=== PATIENT | female | born 1985 | race Caucasian/White ===

== ENCOUNTER 2018-06-23 11:05 | Emergency (ER) | payer MEDICAID, SELFPAY ==
--- NOTE | 2018-06-23 11:09 | NUR.NOTE ---
pt is 4-5 weeks and has noticed spotting g5,g5,
[2018-06-23 11:12] VITALS: BP 140/82; PULSE 105; RESP 25; TEMP 37.1; O2SAT 94
--- NOTE | 2018-06-23 11:28 | W.ED.GENAD ---
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 Clinical Impression: Vaginal bleeding affecting early Primary Care Provider: None,None ED Provider: Yonathan Mccord Home Meds and New Rx's Prescriptions: No Action ergocalciferol (vitamin D2) 400 unit tablet 400 unit PO DAILY RF: 0 multivitamin [Daily Multi-Vitamin] tablet 1 tab PO DAILY RF: 0 ferrous sulfate [Feosol] 325 mg (65 mg iron) tablet 325 mg PO DAILY RF: 0 levothyroxine [Synthroid] 50 mcg tablet 50 mcg PO DAILY Qty: 30 RF: 2 penicillin V potassium 500 mg tablet 500 mg PO TID 10 Days Qty: 30 RF: 0 Discharge Instructions Instructions: First Trimester Vaginal Bleed (ED) Additional Instructions: You need additional diagnostic testing. Please have repeat blood drawn on Sunday06/25/2018. Follow-up with OB on Sunday after blood draw or Sunday. No sexual activity until cleared. Return to the ER for any worsening or new concerning symptoms. Referrals: [facility] [Provider Group] Discharge Data Discharge Date/Time-TO BE ENTERED AT DEPARTURE: 06/23/18 13:49 Medical Decision Making 11:30 --33-year-old at 5 weeks here with vaginal spotting that started yesterday. No abdominal pain. Abdominal exam benign. Patient is tachycardic likely secondary to anxiety. Plan to check quantitative hCG and type and screen. -- Pelvic exam deferred given history and patient preference. -- Beta quant 100. Type and screen B-. Plan to give rhogam (only 300mcg dose available and approved for all gestational age according to blood bank protocol per blood bank tech). Spoke with Dr. Williamson (health promotion specialist OB) who recommeds repeat quant in 48hours and outpatient followup. HPI General Mode of arrival: ambulatory. Date/Time Provider Initiated Documentation: 06/23/18 11:17. Limitations to Documentation: no limitations. Information obtained by: patient. HPI Narrative: 33-year-old at 5 weeks here with vaginal bleeding. Patient notes that she has had vaginal spotting that started yesterday and has persisted. She does note that she had sex with her 2 nights ago. The following morning she woke up with pea-sized blood clot and has continued to have light vaginal bleeding noticed with wiping. No modifiers. She denies associated abdominal pain. She has some intermittent very mild vaginal cramping. Patient has not had confirmatory testing other than home test. Related Data Home Medications Medication Instructions Recorded Confirmed ferrous sulfate 325 mg (65 mg 325 mg PO DAILY tab 06/24/18 07/05/18 iron) tablet multivitamin tablet 1 tab PO DAILY 06/24/18 07/05/18 levothyroxine 50 mcg tablet 50 mcg PO DAILY #30 tab 06/25/18 07/05/18 ergocalciferol (vitamin D2) 400 400 unit PO DAILY 07/01/18 07/05/18 unit tablet penicillin V potassium 500 mg 500 mg PO TID 10 Days #30 tab 07/05/18 07/05/18 tablet Previous Rx's Medication Instructions Recorded levothyroxine 50 mcg tablet 50 mcg PO DAILY #30 tab 06/25/18 penicillin V potassium 500 mg 500 mg PO TID 10 Days #30 tab 07/05/18 tablet Allergies Allergy/AdvReac Type Severity Reaction Status Date / Time acetaminophen Allergy Unverified 07/05/18 09:19 [From [employer] with Codeine] codeine Allergy Unverified 07/05/18 09:19 [From [employer] with Codeine] povidone-iodine Allergy Unverified 07/05/18 09:19 [From Betadine] soap [From Betadine] Allergy Unverified 07/05/18 09:19 General Stated Complaint: Abd Prob BOOM: 3 Review of Systems Gastrointestinal Denies abdominal pain Genitourinary Reports as per [facility] Social History Smoking/Tobacco Use Status: Never Alcohol Intake: never Substance use type: does not use Do you feel safe at home: Yes Do you feel safe in your relationship?: Yes History History 6 Para 5 Hx # Term Pregnancies Multiple births Hx # Pregnancies Ectopic pregnancies AB induced Hx Number of Living Children 5 AB spontaneous Exam Const General: cooperative and no acute distress HENMT Mouth: moist mucous membranes Eyes Conjunctivae: normal conjunctivae Sclera: normal sclerae Neck Neck: trachea midline and supple Resp Auscultation: clear to auscultation bilaterally, no rales, no rhonchi and no wheezes Cardio Rate: tachycardic Rhythm: regular rhythm GI Palpation: soft, not firm, no guarding, no masses, not rigid and nontender Skin General skin exam: no rashes or lesions noted Neuro General: alert, awake and tone normal Extrem General: no edema Psych Affect: anxious affect Course Vital Signs Temperature 37.1 C 06/23/18 11:12 Pulse 105 H 06/23/18 11:12 Respiratory Rate 25 H 06/23/18 11:12 Blood Pressure 140/82 06/23/18 11:12 Pulse Oximetry 94 L 06/23/18 11:12 Temperature 37.1 C 06/23/18 11:12 Temperature Source Skin 06/23/18 11:12 Pulse 105 H 06/23/18 11:12 Respiratory Rate 25 H 06/23/18 11:12 Blood Pressure 140/82 06/23/18 11:12 Blood Pressure Position Sitting 06/23/18 11:12 Pulse Oximetry 94 L 06/23/18 11:12 Oxygen Delivery Method Room Air 06/23/18 11:12 Oxygen Flow Rate 0 06/23/18 11:12 Pain Level 0 06/23/18 11:12
--- NOTE | 2018-06-23 11:34 | ED.GENADUL_ITS ---
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: Vaginal bleeding affecting early Primary Care Provider: None,None ED Provider: Yonathan Mccord Home Meds and New Rx's Prescriptions: No Action ergocalciferol (vitamin D2) 400 unit tablet 400 unit PO DAILY RF: 0 multivitamin [Daily Multi-Vitamin] tablet 1 tab PO DAILY RF: 0 ferrous sulfate [Feosol] 325 mg (65 mg iron) tablet 325 mg PO DAILY RF: 0 levothyroxine [Synthroid] 50 mcg tablet 50 mcg PO DAILY Qty: 30 RF: 2 penicillin V potassium 500 mg tablet 500 mg PO TID 10 Days Qty: 30 RF: 0 Discharge Instructions Instructions: First Trimester Vaginal Bleed (ED) Additional Instructions: You need additional diagnostic testing. Please have repeat blood drawn on Sunday06/25/2018. Follow-up with OB on Sunday after blood draw or Sunday. No sexual activity until cleared. Return to the ER for any worsening or new concerning symptoms. Referrals: [facility] [Provider Group] Discharge Data Discharge Date/Time-TO BE ENTERED AT DEPARTURE: 06/23/18 13:49 Medical Decision Making 11:30 --33-year-old at 5 weeks here with vaginal spotting that started yesterday. No abdominal pain. Abdominal exam benign. Patient is tachycardic likely secondary to anxiety. Plan to check quantitative hCG and type and screen. -- Pelvic exam deferred given history and patient preference. -- Beta quant 100. Type and screen B-. Plan to give rhogam (only 300mcg dose available and approved for all gestational age according to blood bank protocol per blood bank tech). Spoke with Dr. Williamson (money laundering investigator OB) who recommeds repeat quant in 48hours and outpatient followup. HPI General Mode of arrival: ambulatory . Date/Time Provider Initiated Documentation: 06/23/18 11:17 . Limitations to Documentation: no limitations . Information obtained by: patient . HPI Narrative: 33-year-old at 5 weeks here with vaginal bleeding. Patient notes that she has had vaginal spotting that started yesterday and has persisted. She does note that she had sex with her 2 nights ago. The following morning she woke up with pea- sized blood clot and has continued to have light vaginal bleeding noticed with wiping. No modifiers. She denies associated abdominal pain. She has some intermittent very mild vaginal cramping. Patient has not had confirmatory testing other than home test. Related Data Home Medications Medication Instructions Recorded Confirmed ferrous sulfate 325 mg (65 mg 325 mg PO DAILY tab 06/24/18 07/05/18 iron) tablet multivitamin tablet 1 tab PO DAILY 06/24/18 07/05/18 levothyroxine 50 mcg tablet 50 mcg PO DAILY #30 tab 06/25/18 07/05/18 ergocalciferol (vitamin D2) 400 400 unit PO DAILY 07/01/18 07/05/18 unit tablet penicillin V potassium 500 mg 500 mg PO TID 10 Days #30 tab 07/05/18 07/05/18 tablet Previous Rx's Medication Instructions Recorded levothyroxine 50 mcg tablet 50 mcg PO DAILY #30 tab 06/25/18 penicillin V potassium 500 mg 500 mg PO TID 10 Days #30 tab 07/05/18 tablet Allergies Allergy/AdvReac Type Severity Reaction Status Date / Time acetaminophen Allergy Unverified 07/05/18 09:19 [From [employer] with Codeine] codeine Allergy Unverified 07/05/18 09:19 [From [employer] with Codeine] povidone-iodine Allergy Unverified 07/05/18 09:19 [From Betadine] soap [From Betadine] Allergy Unverified 07/05/18 09:19 General Stated Complaint: Abd Prob BOOM: 3 Review of Systems Gastrointestinal Denies abdominal pain Genitourinary Reports as per [facility] Social History Smoking/Tobacco Use Status: Never Alcohol Intake: never Substance use type: does not use Do you feel safe at home: Yes Do you feel safe in your relationship?: Yes History History 6 Para 5 Hx # Term Pregnancies Multiple births Hx # Pregnancies Ectopic pregnancies AB induced Hx Number of Living Children 5 AB spontaneous Exam Const General: cooperative and no acute distress HENMT Mouth: moist mucous membranes Eyes Conjunctivae: normal conjunctivae Sclera: normal sclerae Neck Neck: trachea midline and supple Resp Auscultation: clear to auscultation bilaterally, no rales, no rhonchi and no wheezes Cardio Rate: tachycardic Rhythm: regular rhythm GI Palpation: soft, not firm, no guarding, no masses, not rigid and nontender Skin General skin exam: no rashes or lesions noted Neuro General: alert, awake and tone normal Extrem General: no edema Psych Affect: anxious affect Course Vital Signs Temperature 37.1 C 06/23/18 11:12 Pulse 105 H 06/23/18 11:12 Respiratory Rate 25 H 06/23/18 11:12 Blood Pressure 140/82 06/23/18 11:12 Pulse Oximetry 94 L 06/23/18 11:12 Temperature 37.1 C 06/23/18 11:12 Temperature Source Skin 06/23/18 11:12 Pulse 105 H 06/23/18 11:12 Respiratory Rate 25 H 06/23/18 11:12 Blood Pressure 140/82 06/23/18 11:12 Blood Pressure Position Sitting 06/23/18 11:12 Pulse Oximetry 94 L 06/23/18 11:12 Oxygen Delivery Method Room Air 06/23/18 11:12 Oxygen Flow Rate 0 06/23/18 11:12 Pain Level 0 06/23/18 11:12
[2018-06-23 12:13] LABS: HCT 40.6 % (36.0-46.0); HGB 13.5 g/dL (12.0-15.5); Mean Corp. HGB Concentration 33.3 g/dL (32.0-36.0); Mean Corpuscular Hemoglobin 29.2 pg (27.0-33.0); Mean Corpuscular Volume 87.7 fL (80-95); Mean Platelet Volume 8.9 fL (8.0-11.0); Platelet Count 244 x1000/uL (130-400); RBC 4.63 m/cumm (4.00-5.20); RBC Distribution Width 13.3 % (11.7-14.6); White Blood Cell Count 6.45 k/cumm (4.4-10.8)
[2018-06-23 12:29] LABS: HCG Quant, Pregnancy 105 mIU/mL (1-3)
[2018-06-23 13:46] VITALS: BP 140/82; PULSE 99; RESP 15; TEMP 36.5; O2SAT 96
== END 2018-06-23 13:49 | disposition home or self-care (01) ==
PROVIDERS: Emergency Provider Student in an Organized Health Care Education/Training Program
DX: O20.9 Hemorrhage in early pregnancy, unspecified (principal); R00.0 Tachycardia, unspecified; Z3A.00 Weeks of gestation of pregnancy not specified
CPT/HCPCS: 36415; 36430; 85027; 86850; 86900; 86901; 90384; 96372; 99284; 84702; J2790

== ENCOUNTER 2018-06-25 08:00 | Outpatient (CLI) | payer MEDICAID, SELFPAY ==
[2018-06-25 09:30] LABS: HCG Quant, Pregnancy 151 mIU/mL (1-3)
[2018-06-25 09:35] LABS: TSH 9.88 uIU/mL (0.358-3.74)
== END 2018-06-25 08:20 ==
PROVIDERS: Obstetrics & Gynecology; Visit Provider Student in an Organized Health Care Education/Training Program
DX: R63.5 Abnormal weight gain (principal); N93.9 Abnormal uterine and vaginal bleeding, unspecified
CPT/HCPCS: 36415; 84443; 84702

== ENCOUNTER 2018-06-27 07:45 | Outpatient (CLI) | payer MEDICAID, SELFPAY ==
[2018-06-27 08:40] LABS: HCG Quant, Pregnancy 203 mIU/mL (1-3)
== END 2018-06-27 08:05 ==
PROVIDERS: Visit Provider Obstetrics & Gynecology
DX: O46.90 Antepartum hemorrhage, unspecified, unspecified trimester (principal)
CPT/HCPCS: 36415; 84702

== ENCOUNTER 2018-07-01 12:26 | Outpatient (CLI) | payer MEDICAID, SELFPAY ==
--- NOTE | 2018-07-01 12:39 | DI.US_ITS ---
SYMPTOMS/DIAGNOSIS: VAGINAL BLEEDING, ? ECTOPIC OB ULTRASOUND: The uterus measures 8.1 x 4.6 x 5.1 cm. The endometrial stripe measures 1 cm in thickness. There is no evidence of an intrauterine gestational sac. No fluid is seen within the endometrium. The ovaries show small follicles. No ectopic is seen. There is a small amount of fluid adjacent to the right ovary. IMPRESSION: No evidence of intrauterine or ectopic .
[2018-07-01 13:46] LABS: HCG Quant, Pregnancy 69 mIU/mL (1-3)
== END 2018-07-01 12:46 ==
PROVIDERS: Visit Provider Obstetrics & Gynecology Gynecology
DX: N93.9 Abnormal uterine and vaginal bleeding, unspecified (principal); O20.0 Threatened abortion; Z98.890 Other specified postprocedural states
CPT/HCPCS: 36415; 76801; 84702

== ENCOUNTER 2019-01-03 12:06 | Outpatient (REF) | payer MEDICAID, SELFPAY ==
[2019-01-03 18:06] LABS: HGB 13.6 g/dL (12.0-15.5); Mean Corp. HGB Concentration 32.4 g/dL (32.0-36.0); Mean Corpuscular Hemoglobin 28.8 pg (27.0-33.0); Mean Corpuscular Volume 88.8 fL (80-95); Mean Platelet Volume 9.4 fL (8.0-11.0); Platelet Count 322 x1000/uL (130-400); RBC 4.73 m/cumm (4.00-5.20); White Blood Cell Count 5.44 k/cumm (4.4-10.8)
[2019-01-03 18:30] LABS: TSH (W/Ref FT4) 8.46 uIU/mL (0.36-3.74)
[2019-01-03 19:04] LABS: FREE T4 0.94 ng/dL (0.76-1.46)
[2019-01-06 12:01] LABS: Thyroperoxidase Antibody >1300 U/mL (<61)
== END 2019-01-03 12:26 ==
LOC: NCHCN 12:06
PROVIDERS: Visit Provider Nurse Practitioner Family
DX: E53.8 Deficiency of other specified B group vitamins (principal); D64.9 Anemia, unspecified; E03.9 Hypothyroidism, unspecified
CPT/HCPCS: 85027; 84439; 84443; 86376

== ENCOUNTER 2019-01-06 01:06 | Outpatient (CLI) | payer MEDICAID, SELFPAY ==
--- NOTE | 2019-01-06 08:23 | DI.US_ITS ---
EXAM: US THYROID CLINICAL HISTORY: FAM HX OF HASHIMOTOS THYROIDITIS, Z83.49. TECHNIQUE: Ultrasound performed using standard protocol. COMPARISON: There are no priors for comparison. FINDINGS: The right lobe of the thyroid gland measures 4.7 x 2.4 x 2.8 cm. The thyroid gland is heterogeneous with multiple thyroid nodules present. The largest nodule measures 1.2 x 0.9 x 1.0 cm. The nodules are solid and several contain internal blood flow. The left lobe of the thyroid gland measures 5.5 x 2.2 x 2.0 cm. The lobe is heterogeneous with multi ple thyroid nodules. The largest nodule is seen superiorly and measures 2.3 x 1.6 x 1.7 cm. There i s internal blood flow. The isthmus measures 5.6 mm. IMPRESSION: Enlarged, heterogeneous, and multinodular thyroid gland.
--- NOTE | 2019-01-06 09:24 | DI.RAD_ITS ---
EXAM: XR CERVICAL SPINE COMP 4-5V CLINICAL HISTORY: NECK PAIN. TECHNIQUE: 2D digital imaging was performed. COMPARISON: No exams were available for comparison FINDINGS: BONES: No fracture or destructive lesion. Vertebral bodies are unremarkable. No neural foraminal enc roachment is present DISKS: Intervertebral disc spaces are maintained. ALIGNMENT: Cervical spinal alignment is within normal limits. The odontoid and atlantoaxial articulat ions are normal. SOFT TISSUE: Normal. The lung apices are clear. IMPRESSION: Unremarkable radiographs of the cervical spine.
--- NOTE | 2019-01-06 09:25 | DI.RAD_ITS ---
EXAM: XR THORACIC SPINE COMPLETE CLINICAL HISTORY: CHRONIC BACK PAIN. TECHNIQUE: 2D digital imaging was performed. COMPARISON: There are no priors for comparison. FINDINGS: BONES: There is no fracture or destructive lesion. The vertebral bodies and posterior elements are un remarkable. DISKS:Alignment is within normal limits. Interverebral disc spaces are maintained. SOFT TISSUE: Visualized lungs are clear. IMPRESSION: Unremarkable radiographs of the thoracic spine.
--- NOTE | 2019-01-06 09:25 | DI.RAD_ITS ---
EXAM: XR HIP RT COMPLETE AP PELVIS CLINICAL HISTORY: HX OF TRAUMATIC HIP FRACTURE, Z87.81. TECHNIQUE: 2D digital imaging was performed. COMPARISON: No exams were available for comparison FINDINGS: BONES: No acute fracture is present. No bony destructive lesion is seen. JOINTS: No dislocation present. SOFT TISSUE: Normal. IMPRESSION: Unremarkable radiographs of the right hip. Unremarkable radiographs of the pelvis.
--- NOTE | 2019-01-06 09:25 | DI.RAD_ITS ---
EXAM: XR SACRUM CLINICAL HISTORY: HX OF TRAUMATIC HIP FRACTURE, Z87.81. TECHNIQUE: 2D digital imaging was performed. COMPARISON: No exams were available for comparison FINDINGS: BONES: No acute fracture is present. No bony destructive lesion is seen. There is no evidence of ank ylosis. JOINTS: No dislocation present. SOFT TISSUE: Normal. IMPRESSION: Unremarkable radiographs of the sacrum.
--- NOTE | 2019-01-06 09:25 | DI.RAD_ITS ---
EXAM: XR LUMBAR SPINE COMPLETE CLINICAL HISTORY: HX OF TRAUMATIC HIP FRACTURE, Z87.81, L4-5 DISC BULGE, M51.26. TECHNIQUE: 2D digital imaging was performed. COMPARISON: No exams were available for comparison FINDINGS: BONES: No fracture or destructive lesion. Vertebral bodies are unremarkable. There are mild degenerat layla changes of the facets at L5-S1. There is no spondylolysis or spondylolisthesis. DISKS: Intervertebral disc spaces are maintained. ALIGNMENT: Lumbar spinal alignment is within normal limits. SOFT TISSUE: There are surgical clips in the pelvis likely reflecting tubal ligation. IMPRESSION: Minimal degenerative changes seen in the lower lumbar spine.
== END 2019-01-06 01:26 ==
PROVIDERS: PCP Nurse Practitioner Family; Visit Provider Nurse Practitioner Family
DX: E04.2 Nontoxic multinodular goiter (principal); Z82.49 Family history of ischemic heart disease and other diseases of the circulatory system; M54.2 Cervicalgia; M25.551 Pain in right hip; Z87.81 Personal history of (healed) traumatic fracture; M54.6 Pain in thoracic spine; M54.5 Low back pain; M51.26 Other intervertebral disc displacement, lumbar region
CPT/HCPCS: 72050; 72072; 72110; 72220; 73502; 76536

== ENCOUNTER 2019-05-13 13:18 | Outpatient (CLI) | payer MEDICAID, SELFPAY | END 2019-05-13 13:38 | PROVIDERS: PCP Nurse Practitioner Family | DX: E03.9 Hypothyroidism, unspecified (principal); E04.2 Nontoxic multinodular goiter; E06.3 Autoimmune thyroiditis | CPT/HCPCS: 36415; 84443 ==

== ENCOUNTER 2019-07-30 01:43 | Outpatient (CLI) | payer MEDICAID, SELFPAY ==
[2019-07-30 13:01] LABS: Abs Immature Grans 0.02 k/cumm (0.0-0.09); Absolute Basophil Count 0.03 k/cumm (0.0-0.2); Absolute Eosinophil Count 0.07 k/cumm (0.0-0.7); Absolute Lymphocyte Count 1.93 k/cumm (1.2-3.4); Absolute Monocyte Count 0.57 k/cumm (0.11-0.7); Absolute Neutrophil Count 6.39 k/cumm (1.2-6.7); Basophils % 0.3; Eosinophils % 0.8; HCT 40.1 % (36.0-46.0); HGB 13.5 g/dL (12.0-15.5); Immature Grans % 0.2 %; Lymphocytes % 21.4; Mean Corp. HGB Concentration 33.7 g/dL (32.0-36.0); Mean Corpuscular Hemoglobin 29.3 pg (27.0-33.0); Mean Corpuscular Volume 87.2 fL (80-95); Mean Platelet Volume 9.5 fL (8.0-11.0); Monocytes % 6.3; Platelet Count 282 x1000/uL (130-400); White Blood Cell Count 9.01 k/cumm (4.4-10.8)
[2019-07-30 13:16] LABS: TSH (W/Ref FT4) 2.96 uIU/mL (0.36-3.74)
[2019-07-31 14:52] LABS: Hepatitis B Surface Ag Negative (Negative)
[2019-07-31 14:53] LABS: HIV-1/2 Ag & Ab Screen Negative (Negative)
[2019-07-31 15:04] LABS: Hepatitis C Ab w Rflx HCV PCR Negative (Negative)
[2019-08-01 10:34] LABS: Rubella IgG Ab (UVM) Positive (See Note); Syphilis Serology (RPR) Negative (Negative)
[2019-08-01 11:14] LABS: Varicella IgG Antibody Positive (See Note)
== END 2019-07-30 02:03 ==
PROVIDERS: Obstetrics & Gynecology; PCP Nurse Practitioner Family; Visit Provider Nurse Practitioner Family
DX: Z34.91 Encounter for supervision of normal pregnancy, unspecified, first trimester (principal); Z11.4 Encounter for screening for human immunodeficiency virus [HIV]; Z11.59 Encounter for screening for other viral diseases; Z01.84 Encounter for antibody response examination
CPT/HCPCS: 36415; 80055; 86787; 86803; 86850; 86900; 86901; 87340; 87389; 84443; 86592; 86762

== ENCOUNTER 2019-08-28 04:05 | Outpatient (CLI) | payer MEDICAID, SELFPAY ==
[2019-08-28 14:04] LABS: *AMPHETAMINES SCREEN URINE Negative (Negative); *BARBITURATES SCREEN URINE Negative (Negative); *BENZODIAZEPINES SCREEN URINE Negative (Negative); Cannabinoids THC Negative (Negative); Cocaine Screen,Urine Negative (Negative); METHADONE URINE SCREEN Negative (Negative); OPIATES URINE SCREEN Negative (Negative)
[2019-08-28 14:09] LABS: Tricyclic Antidepressants Negative (Negative)
== END 2019-08-28 04:25 ==
PROVIDERS: Obstetrics & Gynecology; PCP Nurse Practitioner Family; Visit Provider Obstetrics & Gynecology Gynecology
DX: O20.0 Threatened abortion (principal); Z67.91 Unspecified blood type, Rh negative
CPT/HCPCS: 36415; 80307; 86850; 86900; 86901; 87077; 90384; 87086; 87186

== ENCOUNTER 2019-09-05 13:31 | Outpatient (CLI) | payer MEDICAID, SELFPAY ==
[2019-09-05 15:11] LABS: Glucose,1 Hr (Glucola) 139 mg/dL (80-140)
[2019-09-05 15:15] LABS: Abs Immature Grans 0.03 k/cumm (0.0-0.09); Absolute Basophil Count 0.02 k/cumm (0.0-0.2); Absolute Lymphocyte Count 1.83 k/cumm (1.2-3.4); Absolute Monocyte Count 0.43 k/cumm (0.11-0.7); Absolute Neutrophil Count 6.24 k/cumm (1.2-6.7); Basophils % 0.2; Eosinophils % 1.2; HCT 38.2 % (36.0-46.0); HGB 12.8 g/dL (12.0-15.5); Immature Grans % 0.3 %; Lymphocytes % 21.2; Mean Corp. HGB Concentration 33.5 g/dL (32.0-36.0); Mean Corpuscular Hemoglobin 29.5 pg (27.0-33.0); Mean Platelet Volume 9.4 fL (8.0-11.0); Neutrophils % 72.1; Platelet Count 252 x1000/uL (130-400); RBC 4.34 m/cumm (4.00-5.20); White Blood Cell Count 8.65 k/cumm (4.4-10.8)
[2019-09-05 16:41] LABS: TSH (W/Ref FT4) 2.68 uIU/mL (0.36-3.74)
[2019-09-05 17:44] LABS: *AMPHETAMINES SCREEN URINE Negative (Negative); *BARBITURATES SCREEN URINE Negative (Negative); *BENZODIAZEPINES SCREEN URINE Negative (Negative); Cannabinoids THC Negative (Negative); Cocaine Screen,Urine Negative (Negative); METHADONE URINE SCREEN Negative (Negative); OPIATES URINE SCREEN Negative (Negative)
[2019-09-05 17:46] LABS: Tricyclic Antidepressants Negative (Negative)
[2019-09-08 11:52] LABS: HIV-1/2 Ag & Ab Screen Negative (Negative)
[2019-09-08 11:53] LABS: Hepatitis B Surface Ag Negative (Negative)
[2019-09-08 12:39] LABS: Hepatitis C Ab w Rflx HCV PCR Negative (Negative)
[2019-09-08 13:30] LABS: Rubella IgG Ab (UVM) Positive (See Note)
[2019-09-08 14:39] LABS: Varicella IgG Antibody Equivocal (See Note)
[2019-09-09 09:09] LABS: Chlamydia Result Negative (Negative); GC Result Negative (Negative)
[2019-09-09 09:57] LABS: Syphilis Total Ab w/Reflex Nonreactive (Nonreactive)
[2019-09-14 06:40] LABS: Buprenorphine Negative; Norbuprenorphine Negative
--- NOTE | 2019-10-06 13:21 | DIABASSESS_ITS ---
Date of service: 10/06/19 Time of Service: 13:21 Diabetes Note NOTE: Called Zahraa today to provide support and education for monitoring blood sugars during . 1 hour GTT 139 mg/dl- borderline. Zahraa is 34 year old expecting 6th child. Hx of pre eclamsia and labor. She denies that she has GDM despite discussion and referral by [place]. Reports that all her BS are wnl and that she eats lower carb diet. Now taking levothyroixin, followed by [facility] for Hishimoto Dx. Provided her with my contact information if she needs advice on diet during . Time Spent in Nutritional Counseling and Treatment: 15 min
== END 2019-09-05 13:51 ==
PROVIDERS: PCP Nurse Practitioner Family; Visit Provider Advanced Practice Midwife
DX: Z34.91 Encounter for supervision of normal pregnancy, unspecified, first trimester (principal); Z11.59 Encounter for screening for other viral diseases; Z11.4 Encounter for screening for human immunodeficiency virus [HIV]; Z01.84 Encounter for antibody response examination; Z36.89 Encounter for other specified antenatal screening
CPT/HCPCS: 80307; 82950; 86787; 86803; 86850; 86900; 86901; 87340; 87389; 87491; 87591; 84443; 85025; 86762; 86780; 86870; 87086

== ENCOUNTER 2019-11-10 00:47 | Outpatient (CLI) | payer MEDICAID, SELFPAY ==
--- NOTE | 2019-11-10 06:45 | DI.US_ITS ---
EXAM: US OB 2-3 TRIMESTER CLINICAL HISTORY: ,advanced maternal age,o09.529 TECHNIQUE: Ultrasound performed using standard protocol. COMPARISON: US US THYROID from 01/06/2019 FINDINGS: Ob ultrasound was performed utilizing 2nd trimester protocol. biometry is consistent with gest ational age of 21 weeks and EDC of 03/22/2020. Placenta is posterior with no evidence of placenta pr evia. There is a normal quantity of amniotic fluid. anomaly screen is within normal limits as per the attached checklist, please note that posterio r fossa structures were not adequately seen and patient is scheduled to return November 16 to complet e the evaluation. There is a 22 millimeter in diameter anterior uterine fibroid noted. IMPRESSION: DATA REPOSITORY:
== END 2019-11-10 01:07 ==
PROVIDERS: PCP Nurse Practitioner Family; Visit Provider Obstetrics & Gynecology
DX: O09.522 Supervision of elderly multigravida, second trimester (principal)
CPT/HCPCS: 76805

== ENCOUNTER 2019-11-17 01:23 | Outpatient (CLI) | payer MEDICAID, SELFPAY ==
--- NOTE | 2019-11-17 | DI.US_ITS ---
EXAM: US OB F/U FACIAL/LVOT/RVOT CLINICAL HISTORY: F/U POSTERIOR FOSSA TO COMPLETE PRIOR EXAM. TECHNIQUE: Transabdominal obstetrical ultrasound performed. COMPARISON: US US OB 2-3 TRIMESTER from 11/10/2019 FINDINGS: Limited transabdominal obstetrical ultrasound performed. FINDINGS: heart rate: 141 bpm. ANATOMICAL SURVEY: Evaluation was performed to complete the 2nd trimester ultrasound from 020. The posterior fossa was evaluated sonographically and is unremarkable. IMPRESSION: 1. Single live intrauterine gestation as above. 2. Unremarkable posterior fossa. DATA REPOSITORY:
== END 2019-11-17 01:43 ==
PROVIDERS: PCP Nurse Practitioner Family; Visit Provider Obstetrics & Gynecology
DX: Z34.92 Encounter for supervision of normal pregnancy, unspecified, second trimester (principal)
CPT/HCPCS: 76815

== ENCOUNTER 2019-12-04 04:29 | Outpatient (CLI) | payer MEDICAID, SELFPAY ==
[2019-12-04 08:00] LABS: HCT 37.1 % (36.0-46.0); HGB 11.7 g/dL (11.2-15.7); MCH 28.1 pg (27.0-33.0); MCHC 31.5 % (32.0-36.0); MCV 89.2 fL (80-95); MPV 9.7 fL (8.0-11.0); Platelet Count 234 10^3/uL (130-400); RBC 4.16 10^6/uL (3.93-5.22); RDW 13.3 % (11.7-14.6); RDW-SD 43.4 fL; WBC 10.49 10^3/uL (4.4-10.8)
[2019-12-04 09:03] LABS: Total Iron Binding Capacity 537 ug/dL (250-450)
[2019-12-04 09:07] LABS: Ferritin 6 ng/mL (8-252); TSH (W/Ref FT4) 2.44 uIU/mL (0.36-3.74)
== END 2019-12-04 04:49 ==
PROVIDERS: PCP Nurse Practitioner Family; Visit Provider Obstetrics & Gynecology Gynecology
DX: E03.9 Hypothyroidism, unspecified (principal); Z34.90 Encounter for supervision of normal pregnancy, unspecified, unspecified trimester
CPT/HCPCS: 36415; 85027; 82728; 83550; 84443

== ENCOUNTER 2019-12-29 09:55 | Outpatient (CLI) | payer MEDICAID, SELFPAY ==
[2019-12-29 10:51] LABS: Abs Immature Grans 0.07 10^3/uL (0.0-0.06); Absolute Basophil Count 0.05 10^3/uL (0.0-0.2); Absolute Lymphocyte Count 1.56 10^3/uL (1.2-3.4); Absolute Monocyte Count 0.38 10^3/uL (0.1-0.8); Basophils % 0.4; HCT 36.9 % (36.0-46.0); HGB 11.6 g/dL (11.2-15.7); Immature Grans % 0.6; Lymphocytes % 13.6; MCH 28.1 pg (27.0-33.0); MCHC 31.4 % (32.0-36.0); MCV 89.3 fL (80-95); MPV 9.7 fL (8.0-11.0); Monocytes % 3.3; Neutrophils % 81.1; Nucleated RBC 0 %; Platelet Count 217 10^3/uL (130-400); RBC 4.13 10^6/uL (3.93-5.22); RDW 15.9 % (11.7-14.6); WBC 11.46 10^3/uL (4.4-10.8)
[2019-12-29 10:53] LABS: Absolute Eosinophil Count 0.11 10^3/uL (0.0-0.7); Absolute Neutrophil Count 9.29 10^3/uL (1.2-6.7)
[2019-12-29 10:54] LABS: Glucose,1 Hr (Glucola) 170 mg/dL (80-140)
[2019-12-30 19:45] LABS: Tissue Transglutaminase Ab IgA <1.2 U/mL
--- NOTE | 2020-01-26 12:59 | W.DIABETESNO ---
Date of service: 01/26/20 Time of Service: 12:59 Diabetes Note NOTE: Left message on VM to call back if needs additional support to manage GDM. Recently started on NPH at bedtime for elevated fasting BS. Time Spent in Nutritional Counseling and Treatment: 0
== END 2019-12-29 10:15 ==
PROVIDERS: Internal Medicine Endocrinology, Diabetes & Metabolism; PCP Nurse Practitioner Family; Visit Provider Obstetrics & Gynecology
DX: O09.523 Supervision of elderly multigravida, third trimester (principal); O99.283 Endocrine, nutritional and metabolic diseases complicating pregnancy, third trimester; E06.3 Autoimmune thyroiditis; K58.9 Irritable bowel syndrome, unspecified; D50.0 Iron deficiency anemia secondary to blood loss (chronic)
CPT/HCPCS: 36415; 82950; 86850; 90384; 83516; 85025